=== PATIENT | female | born 1990 | race Caucasian/White ===

== ENCOUNTER 2017-01-02 08:09 | Day surgery (SDC) | payer BC ==
[~2017-01-02] VITALS: Ht 162.6 cm; Wt 65.8 kg
[~2017-01-02 08:09] MED LIST: ENDOCET 5-3251 EACH PO; IBUPROFEN800 MG PO; MICROGESTIN1 EACH PO; MOTRIN800 MG PO; PRENATAL TABLE1 EAC3 PO; ZANTAC150 MG PO
[2017-01-02 08:37] VITALS: BP 135/73
[2017-01-02 09:57] LABS: ADD MIUA? NO; BILIRUBIN NEGATIVE; BLOOD NEGATIVE; COLOR YELLOW ((YELLOW)); GLUCOSE (STRIP) NEGATIVE; KETONES NEGATIVE; LEUKOCYTES NEGATIVE; NITRITE NEGATIVE; PROTEIN (STRIP) NEGATIVE; UROBILINOGEN 0.2 MG/DL (0.2-1.0)
[2017-01-02] MEDS ORDERED: PERCOCET 5/31 TABLET PO (11:11)
[2017-01-02 12:12] VITALS: BP 110/63
[2017-01-02 13:12] VITALS: BP 103/54
== END 2017-01-02 13:50 | disposition home or self-care (01) ==
LOC: SDC 08:09
PROVIDERS: Surgery
PROC: 0FT44ZZ Resection of Gallbladder, Percutaneous Endoscopic Approach (ICD-10-PCS; principal; 2017-01-02)
DX: K80.10 Calculus of gallbladder with chronic cholecystitis without obstruction (principal); K21.9 Gastro-esophageal reflux disease without esophagitis
CPT/HCPCS: 81003; 88304; J0330; J0690; J1100; J1170; J1885; J2250; J2405; J2710; J3010; Q0175